=== PATIENT | female | born 1940 | race Caucasian/White ===

== ENCOUNTER → 2016-07-16 | Outpatient (CLI) | payer BC ==
[~2016-07-16] MED LIST: OMNIPAQUE 350 MG/ML, 100ML BOTTLE ONE
== END | disposition home or self-care (01) ==
LOC: RAD 15:34
PROVIDERS: ATTEND Internal Medicine
DX: J47.9 Bronchiectasis, uncomplicated (principal); J98.11 Atelectasis; R59.9 Enlarged lymph nodes, unspecified; R91.8 Other nonspecific abnormal finding of lung field; K44.9 Diaphragmatic hernia without obstruction or gangrene; J98.4 Other disorders of lung; E11.9 Type 2 diabetes mellitus without complications
CPT/HCPCS: 36415; 71260; 82565; Q9967

== ENCOUNTER 2016-08-13 11:31 | Day surgery (SDC) | payer BC ==
[~2016-08-13] VITALS: Ht 161.3 cm; Wt 70.0 kg
[~2016-08-13 11:31] MED LIST changes: +ACEB400C PO; +LIDOCAINE 2%, 20ML ONE; +LIDOCAINE GEL 2%, 5ML ONE; -OMNIPAQUE 350 MG/ML, 100ML BOTTLE ONE
[2016-08-13 12:18] VITALS: BP 158/88
[2016-08-13] MEDS ORDERED: MIDAZOLAM 1 MG/ML, 5ML ONE (13:05)
[2016-08-13] MEDS ORDERED: FENTANYL PF 100 MCG/2ML ONE (13:05)
== END 2016-08-13 16:20 | disposition home or self-care (01) ==
LOC: OUT 11:31
PROVIDERS: ATTEND Internal Medicine
DX: R91.8 Other nonspecific abnormal finding of lung field (principal); Z87.01 Personal history of pneumonia (recurrent); I10 Essential (primary) hypertension; Z83.3 Family history of diabetes mellitus; Z90.710 Acquired absence of both cervix and uterus; Z98.890 Other specified postprocedural states; Z87.891 Personal history of nicotine dependence; J30.89 Other allergic rhinitis; J47.9 Bronchiectasis, uncomplicated
CPT/HCPCS: 31623; 31624; 36415; 85610; 85730; 87070; 87077; 87102; 87186; 87205; 88104; 88112; 88305; 99152; 99153; J2250; J3010; J3490

== ENCOUNTER → 2017-01-26 | Outpatient (CLI) | payer BC ==
[~2017-01-26] MED LIST changes: -LIDOCAINE 2%, 20ML ONE; -LIDOCAINE GEL 2%, 5ML ONE
== END | disposition home or self-care (01) ==
LOC: CFH 14:30
PROVIDERS: ATTEND Family Medicine
DX: Z12.31 Encounter for screening mammogram for malignant neoplasm of breast (principal); M81.0 Age-related osteoporosis without current pathological fracture; M85.88 Other specified disorders of bone density and structure, other site; Z78.0 Asymptomatic menopausal state; Z80.3 Family history of malignant neoplasm of breast
CPT/HCPCS: 77080; G0202

== ENCOUNTER 2019-01-30 18:50 | Emergency (ER) | payer OTHER, MEDICARE ==
[~2019-01-30] VITALS: Ht 160 cm; Wt 70.4 kg
[2019-01-30 20:27] LABS: MEAN CORPUSCULAR HEMOGLOBIN 33.2 pg (27.0-34.8); MEAN CORPUSCULAR HGB CONC 32.8 g/dL (32.4-35.8); MEAN CORPUSCULAR VOLUME 101.3 fL (80-100); MEAN PLATELET VOLUME 7.2 fL (7.4-10.4); PLATELET COUNT 339 x10^3/uL (130-400); RED BLOOD COUNT 4.14 x10^6/uL (3.82-5.3); RED CELL DISTRIBUTION WIDTH 12.8 % (9.6-15.2)
[2019-01-30 20:33] LABS: ALBUMIN 2.7 g/dL (3.4-5.0); ANION GAP 6 mmol/L (5-15); CALCIUM 8.3 mg/dL (8.5-10.1); CHLORIDE 109 mmol/L (98-107); CREATININE 0.81 mg/dL (0.55-1.02)
[2019-01-30] MEDS ORDERED: HYDROcodone/APAP 5/325 TABLET ONE (20:39)
[2019-01-30] MEDS ORDERED: HYDROcodone/APAP 5/325 TABLET PO ONE (21:00)
[2019-01-30 21:22] LABS: MD YES
[2019-01-30 21:31] LABS: LYMPH#(MANUAL) 2.09 x10^3/uL (1-3.4); LYMPHS% (MANUAL) 13 % (22-44); MONOS#(MANUAL) 1.61 x10^3/uL (0.3-2.7); MONOS% (MANUAL) 10 % (2-9); SEGS% (MANUAL) 77 % (42-75)
[2019-01-30 21:32] LABS: <PLATELET ESTIMATE> ADEQUATE; <PLT MORPHOLOGY> NORMAL PLT MORPH
[2019-01-30 22:10] VITALS: BP 146/57
== END 2019-01-30 22:12 ==
LOC: ED 22:06
DX: J15.9 Unspecified bacterial pneumonia (principal); I10 Essential (primary) hypertension; Z87.891 Personal history of nicotine dependence
CPT/HCPCS: 36415; 71045; 80048; 82040; 85025; 93005; 99284

== ENCOUNTER → 2019-02-13 | Outpatient (CLI) | payer OTHER, MEDICARE | END | disposition home or self-care (01) | LOC: RAD 11:49 | PROVIDERS: ATTEND Internal Medicine | DX: J18.9 Pneumonia, unspecified organism (principal); Z87.891 Personal history of nicotine dependence | CPT/HCPCS: 71046 ==

== ENCOUNTER 2019-09-19 07:42 | Outpatient (CLI) | payer MEDICARE | END 2019-09-19 23:59 | disposition home or self-care (01) | LOC: CFH 07:42 | PROVIDERS: ATTEND Internal Medicine | DX: R91.8 Other nonspecific abnormal finding of lung field (principal); J98.4 Other disorders of lung; J47.9 Bronchiectasis, uncomplicated | CPT/HCPCS: 71250 ==